=== PATIENT | male | born 1965 | race Caucasian/White ===

== ENCOUNTER 2023-10-12 02:50 | Emergency (ER) | payer BC, SELFPAY ==
[2023-10-12 02:53] VITALS: BP 137/94
[2023-10-12 03:18] LABS: % Basophils 1.3 % (0-2); % Eosinophils 3.2 % (0-6); % Immature Granulocytes 0.4 % (0-0.5); % Lymphocytes 24.7 % (20.5-51.1); % Monocytes 9.3 % (1.7-9.3); % Neutrophils 61.1 % (42.2-75.2); Absolute Basophils 0.1 10^3/uL (0-0.2); Absolute Eosinophils 0.3 10^3/uL (0-0.7); Absolute Lymphocytes 2.4 10^3/uL (1.2-3.4); Absolute Monocytes 0.9 10^3/uL (0.1-0.6); Absolute Neutrophils 5.8 10^3/uL (1.4-6.5); Hematocrit 47.9 % (39.0-52.0); Hemoglobin 16.8 g/dL (13.0-18.0); Mean Corp Hgb Conc. 35.1 g/dL (33.0-37.0); Mean Corpuscular Hgb 31.9 pg (27.0-31.0); Mean Corpuscular Volume 91.1 fL (80.0-94.0); Nucleated Red Blood Cells % 0 % (-); Platelet Count 263 10^3/uL (130-400); Red Blood Cell Count 5.26 10^6/uL (4.70-6.10); Red Cell Dist. Width 12.7 % (11.5-14.5); White Blood Cell Count 9.5 10^3/uL (4.8-10.8)
--- NOTE | 2023-10-12 03:32 | ED.GENMED ---
History of Present Illness
<ELISE Mendez - Last Filed: 10/12/23 05:07>
General
Chief Complaint: Cardiac Symptoms
Time Seen by Provider: 10/12/23 03:32
Travel History
Have you had any contact with someone who has COVID-19?: No
Do you have any symptoms of coronavirus? Fever > 100 degrees, chills, cough, shortness of breath, sore throat, loss of taste or smell, muscle aches, or headache?: No
History of Present Illness
History of Present Illness:
This is a 58 yo male PMH HTN, NIIDM presenting for heart palpitations x 3 hours. He states he started feeling the palpitations while getting ready for bed and his apple watch showed him he was in AFIB. This lasted for a total of 3 hours and resolved
shortly after arriving to the ED. He deines chest pain, SOB, nausea, vomiting, dizziness, diaphoresis.
He took aspirin before arriva.
EKG on arrival consistent with AFIB. Second EKG taken 10 minutes later showed normal sinus rhythm: resolved with no intervention.
He visited the ED in 2014 with a similar presentation, was sent to cardiology for a stress test which was normal, was not diagnosed with AFIB.
Past History
<ELISE Mendez - Last Filed: 10/12/23 05:07>
Past History
ED Past Medical History: HTN ('Borderline') and Other (Elevated LFTs)
ED Past Surgical History: None
Social History
Tobacco: Smoker (One cigar per week)
Alcohol: Occasional
Personal:
Living: with family
Employment: Employed
Review of Systems
<ELISE Mendez - Last Filed: 10/12/23 05:07>
Review of Systems
Allergies reviewed?: Yes
Constitutional: Reports no symptoms
Respiratory: Reports no symptoms
Cardiac: Reports palpitations
Phy Exam
<ELISE Mendez - Last Filed: 10/12/23 05:07>
General Physical Exam
General Presentation: well appearing
Cardiovascular Exam
Cardiovascular Exam: regular rate/rhythm
Pulmonary Exam
Pulmonary Exam: lungs clear
Neurological Exam
Neurological Exam: alert and oriented x3
Scores
<Bere Wolfe DO - Last Filed: 10/12/23 07:23>
[id number] Score for Afib Stroke Risk
Age in Years (65=0, 65-74=1, >/=75=2): <65
Sex (Female=+1): Male
Congestive Heart Failure History (Yes=+1): No
Hypertension History (Yes=+1): Yes
Stroke/TIA/Thromboembolism History (Yes=+2): No
Vascular Disease History (Yes=+1): No
Diabetes Mellitus (Yes=+1): Yes
Score: 2
Anticoagulation Recommendations: Recommend anticoagulation (as validated in nonvalvular fib)
Course
<ELISE Mendez - Last Filed: 10/12/23 05:07>
Orders/Labs/Results
Orders:
Orders
10/12/23 02:51
Electrocardiogram (*1) Urgent
Reason for Study: Atrial Fibrillation
10/12/23 03:04
EKG- Treatment ONCE
10/12/23 03:06
EKG [Electrocardiogram (*1)] Urgent
Reason for Study: Chest Pain
10/12/23 03:07
EKG- Treatment ONCE
10/12/23 03:10
Complete Blood Count/With Diff Urgent
TSH Urgent
Comment: ADDED
10/12/23 03:21
Add On- LAB Urgent
Tests Added?: TSH
10/12/23 04:10
Comprehensive Metabolic Panel Urgent
10/12/23 04:44
Lorazepam [Ativan] 1 mg PO NOW STA
Abnormal Lab Results
10/12/23 10/12/23
03:10 04:10
MCH 31.9 H pg
(27.0-31.0)
Absolute Monos (auto) 0.9 H 10^3/uL
(0.1-0.6)
Glucose 112 H mg/dl
(70-99)
ALT 58 H U/L
(0-50)
10/12/23 03:10
10/12/23 04:10
Vital Signs
Initial and Last Documented VS:
Initial Vital Signs
Temp Pulse Resp BP Pulse Ox
98.3 F 148 22 137/94 98
10/12/23 02:53 10/12/23 02:53 10/12/23 02:53 10/12/23 02:53 10/12/23 02:53
Last Documented Vital Signs
Temp Pulse Resp BP Pulse Ox
98.3 F 71 15 130/72 94
10/12/23 02:53 10/12/23 05:45 10/12/23 05:45 10/12/23 05:00 10/12/23 05:45
<Bere Wolfe, DO - Last Filed: 10/12/23 07:23>
Orders/Labs/Results
Orders:
Orders
10/12/23 02:51
Electrocardiogram (*1) Urgent
Reason for Study: Atrial Fibrillation
10/12/23 03:04
EKG- Treatment ONCE
10/12/23 03:06
EKG [Electrocardiogram (*1)] Urgent
Reason for Study: Chest Pain
10/12/23 03:07
EKG- Treatment ONCE
10/12/23 03:10
Complete Blood Count/With Diff Urgent
TSH Urgent
Comment: ADDED
10/12/23 03:21
Add On- LAB Urgent
Tests Added?: TSH
10/12/23 04:10
Comprehensive Metabolic Panel Urgent
10/12/23 04:44
Lorazepam [Ativan] 1 mg PO NOW STA
Abnormal Lab Results
10/12/23 10/12/23
03:10 04:10
MCH 31.9 H pg
(27.0-31.0)
Absolute Monos (auto) 0.9 H 10^3/uL
(0.1-0.6)
Glucose 112 H mg/dl
(70-99)
ALT 58 H U/L
(0-50)
10/12/23 03:10
10/12/23 04:10
Vital Signs
Initial and Last Documented VS:
Initial Vital Signs
Temp Pulse Resp BP Pulse Ox
98.3 F 148 22 137/94 98
10/12/23 02:53 10/12/23 02:53 10/12/23 02:53 10/12/23 02:53 10/12/23 02:53
Last Documented Vital Signs
Temp Pulse Resp BP Pulse Ox
98.3 F 71 15 130/72 94
10/12/23 02:53 10/12/23 05:45 10/12/23 05:45 10/12/23 05:00 10/12/23 05:45
<ELISE Mendez - Last Filed: 10/12/23 05:07>
MDM/Problems Addressed
Differential Diagnosis Includes:
AFIB
-palpitations felt for 3 hours, resolved in its own
-follow up with cardiology for assessment and management of AFIB
<ELISE Mendez - Last Filed: 10/12/23 05:07>
*Critical Care Note
Total Time (30-74mins, 75-104mins- exclusive of procedures): Not Applicable
<Bere Wolfe DO - Last Filed: 10/12/23 07:23>
*Pulse Oximetry
Patient hypoxic: no
*EKG
Interpreted by ED Provider?: Yes
Interpretation: abnormal
Comparison EKG: changes noted (A-fib with rapid ventricular response is new compared to previous EKG 2014)
Rate: tachycardiac
Rhythm: a-fib
[place]: normal axis
Interval: normal QT interval
QRS Pattern: normal QRS
Ischemia: non-specific ST changes
*[employer] Interpretation
Rate: tachycardiac
Interpretation: abnormal
Rhythm: a-fib
ED Attending Note
<ST VanessaPA - Last Filed: 10/12/23 05:07>
-
Portions of this chart may have been created with voice recognition software.� Occasional wrong word or��sound alike� substitutions may have occurred due to the inherent limitations of voice recognition software.
<Bere Wolfe DO - Last Filed: 10/12/23 07:23>
ED Attending Note
Patient seen and examined by attending physician: Yes
I performed the substantive portion of visit, reviewed & personally made and approve the management plan that is documented in note by myself or DANIEL.: Yes
I performed a history and physical exam of patient and discussed management with resident, I reviewed resident's note and agree with documented findings and plan of care.: Yes
ED Attending Note:
This is a 58-year-old gentleman who has history of hypertension, [id number]-cyrapmhgg diabetes maintained on lisinopril as well as metformin. He complains of palpitations tonight and noticed his Apple Watch recorded atrial fibrillation. He does
admit to sporadic similar palpitations which generally resolve within a few seconds and was evaluated in this ED in 2014 with similar palpitations which had resolved just prior to arrival to the ED. Unremarkable ED evaluation and he followed up
with cardiology shortly after that ED visit and underwent unremarkable echocardiogram as well as stress test.
During that ED visit in 2014 patient had been taking a fair amount of supplements prior to exercise which he has since discontinued.
He does admit to consuming 2 cups of coffee daily. He denies decongestant nor recreational drug use.
He has recently begun testosterone supplement in the form of injectable seeds that are long-acting.
He complains of palpitations but denies dizziness nor lightheadedness, no chest pain, no shortness of breath, no leg pain or swelling.
EKG upon arrival to the ED shows atrial fibrillation with rapid ventricular response.
Shortly after arrival to the ED he has spontaneously converted to normal sinus rhythm. Repeat EKG shows normal sinus rhythm, no acute ST-T wave abnormalities. He remains asymptomatic.
GENERAL: 58-year-old gentleman appears stated age, awake and alert, pleasant, appears in no acute distress. is accompanying.
EYE: anicteric
NECK: Supple, nontender, no meningismus, no significant adenopathy.
ENT: oral mucosa is moist. No rhinorrhea.
CARDIAC: Regular rate and rhythm. no murmur.
LUNGS: Clear breath sounds bilaterally, no acute respiratory distress, no wheezes/rales/rhonchi
ABDOMEN: Soft, nondistended, without focal tenderness
NEUROLOGICAL: Alert and oriented x3, no focal neuro deficits. Gait is caro and steady.
SKIN: Warm and dry, normal color, skin intact. No rash.
MUSCULOSKELETAL: No C/C/E. peripheral pulses are full and equal b/l. No palpable tenderness.
PSYCH: Normal and appropriate interaction.
Patient presents with paroxysmal atrial fibrillation with rapid ventricular response. Palpitations ongoing for approximately 3 hours prior to arrival but has since spontaneously converted to normal sinus rhythm.
He remains hemodynamically stable.
Will check labs including TSH and continue to observe.
Ultimately patient will require follow-up with cardiology.
We have discussed [id number] score and with history of hypertension, diabetes he has a [id number] score of 2. Would recommend initiation of anticoagulant but will leave for further discussion with winder fixer.
Discharge Plan
Departure
Patient Disposition: Home (Routine Discharge)
Date of Disposition: 10/12/23
Time of Disposition: 05:08
Patient with high blood pressure during this ER visit?: No
Condition: Good
Discharge Problem:
Paroxysmal atrial fibrillation with rapid ventricular response
Instructions: Atrial Fibrillation (DC)
Prescriptions:
No Action
lisinopril 20 MG tablet
20 mg PO HS
Referrals:
Tammy Chambers DO [Family Provider] -
Dwight Taylor MD [Active] - Call in 1-3 days for appt
Interventions
Interventions:
*Risk Screen - Suicide Last Done: 10/12/23 02:53
*General Assessment Last Done: 10/12/23 03:00
*Neglect/Abuse Screening Last Done: 10/12/23 02:53
ED- Fall Risk Assessment Last Done: 10/12/23 03:00
*ED COVID-19 Vaccine History Last Done: 10/12/23 03:00
*Nursing Disposition Last Done: 10/12/23 06:00
ED- Pulmonary Assessment Last Done: 10/12/23 03:00
ED- Cardiac Assessment Last Done: 10/12/23 03:00
Discharge Date and Time
Discharge Date/Time: 10/12/23 06:00
Print Language: TURKISH
[2023-10-12 04:00] VITALS: BP 140/83
[2023-10-12 04:38] LABS: TSH 2.36 uIU/ml (0.47-4.68)
[2023-10-12 04:53] LABS: ALT (SGPT) 58 U/L (0-50); AST (SGOT) 47 U/L (17-59); Albumin 4.3 g/dl (3.5-5.0); Alkaline Phosphatase 106 U/L (38-126); Blood Urea Nitrogen 15 mg/dl (9-20); Calcium 9.6 mg/dl (8.4-10.2); Carbon Dioxide 27 mmol/L (22-30); Chloride 105 mmol/L (98-107); Glucose 112 mg/dl (70-99); Potassium 4.5 mmol/L (3.5-5.1); Sodium 137 mmol/L (135-145); Total Bilirubin 0.3 mg/dl (0.2-1.3); eGFR > 60.00
[2023-10-12 05:00] VITALS: BP 130/72
== END 2023-10-12 06:00 | disposition home or self-care (01) ==
LOC: EMR 02:50
PROVIDERS: EMERGENCY PHYSICIAN Emergency Medicine; FAMILY PHYSICIAN Family Medicine
DX: I48.0 Paroxysmal atrial fibrillation (principal); F17.290 Nicotine dependence, other tobacco product, uncomplicated; E11.9 Type 2 diabetes mellitus without complications; I10 Essential (primary) hypertension
CPT/HCPCS: 99284; 80053; 84443; 85025; 93005

== ENCOUNTER → 2023-11-08 12:39 | Outpatient (REF) | payer BC, SELFPAY | LOC: RCS 12:39 | PROVIDERS: ATTENDING PHYSICIAN Internal Medicine Cardiovascular Disease; FAMILY PHYSICIAN Family Medicine | DX: I48.0 Paroxysmal atrial fibrillation (principal); I10 Essential (primary) hypertension | CPT/HCPCS: 93017 ==

== ENCOUNTER → 2023-11-17 11:22 | Outpatient (REF) | payer BC, SELFPAY | LOC: RCS 11:22 | PROVIDERS: ATTENDING PHYSICIAN Internal Medicine Cardiovascular Disease; FAMILY PHYSICIAN Family Medicine | DX: I48.0 Paroxysmal atrial fibrillation (principal); I10 Essential (primary) hypertension | CPT/HCPCS: 93306 ==